=== PATIENT | male | born 2000 | race Caucasian/White ===

== ENCOUNTER 2025-10-02 02:28 | Emergency (ER) | payer OTHER ==
[~2025-10-02] VITALS: Ht 175.2 cm; Wt 77.1 kg
[2025-10-02] MEDS ORDERED: ALBUTEROL 8 GM INHALER INH ONE (03:25)
== END 2025-10-02 03:25 | disposition home or self-care (01) ==
LOC: ED 02:28
DX: F41.9 Anxiety disorder, unspecified (principal)

== ENCOUNTER 2025-10-07 13:15 | Emergency (ER) | payer OTHER ==
[2025-10-07 14:03] LABS: BASO # 0.1 10*3/uL (0.0-0.1); BASO % 0.7 % (0.0-1.0); EOS # 0.5 10*3/uL (0.0-0.4); EOS % 4.8 % (1.0-4.0); MEAN CELL VOLUME 84.5 fl (80.0-94.0); MEAN CORPUSCULAR HGB 27.4 pg (27.0-31.0); MEAN PLATELET VOLUME 9.1 fl (9.6-12.3); MONO # 0.8 10*3/uL (0.1-1.0); MONO % 7.6 % (3.0-9.0); NEUT # 6.8 10*3/uL (2.3-7.9); NEUT % 66.5 % (47.0-73.0); NUCLEATED RED BLOOD CELL 0.0 % (0.0-0.0); NUCLEATED RED BLOOD CELL 0.0 10*3/uL (0.0-0.0); PLATELET COUNT AUTOMATED 669 10*3/uL (130-400); RED CELL DISTRI WIDTH 12.6 % (0-14.5)
[2025-10-07 14:24] LABS: BUN 13 mg/dl (9-23); SGPT/ALT 20 U/L (5-49)
[2025-10-07 15:32] LABS: BILIRUBIN Negative (Negative); BLOOD Negative (Negative); CLARITY Clear (Clear); COLOR Yellow (Yellow); KETONE Negative (Negative); LEUKO ESTERASE Negative (Negative); NITRITE Negative (Negative); PH 7.5 (4.5-8.0); SPECIFIC GRAVITY 1.010 (1.001-1.030); UROBILINOGEN 0.2 E.U./dl (0.0-1.0)
[2025-10-07 15:55] LABS: BACTERIA TRACE; WBC 0-2 wbc/hpf (0-5)
[2025-10-07] MEDS ORDERED: MIRALAX POWDER17 G1 PO (16:06)
== END 2025-10-07 16:44 | disposition home or self-care (01) ==
LOC: ED 13:15
PROVIDERS: Nurse Practitioner Family
DX: K59.00 Constipation, unspecified (principal); R03.0 Elevated blood-pressure reading, without diagnosis of hypertension